=== PATIENT | male | born 1940 | race Caucasian/White ===

== ENCOUNTER 2018-06-10 09:41 | Inpatient (IN) | payer MEDICARE | END 2018-06-12 18:10 | disposition still patient (30) | LOC: EDHIP 09:41 → 2BH 10:06 | PROC: 02703DZ Dilation of Coronary Artery, One Artery with Intraluminal Device, Percutaneous Approach (ICD-10-PCS; principal; ~2018-06-10) | PROC: 4A023N7 Measurement of Cardiac Sampling and Pressure, Left Heart, Percutaneous Approach (ICD-10-PCS; ~2018-06-10) | PROC: B2111ZZ Fluoroscopy of Multiple Coronary Arteries using Low Osmolar Contrast (ICD-10-PCS; ~2018-06-10) | PROC: B2151ZZ Fluoroscopy of Left Heart using Low Osmolar Contrast (ICD-10-PCS; ~2018-06-10) | DX: I21.19 ST elevation (STEMI) myocardial infarction involving other coronary artery of inferior wall (principal); I23.7 Postinfarction angina; I10 Essential (primary) hypertension; E78.5 Hyperlipidemia, unspecified; Z87.891 Personal history of nicotine dependence ==

== ENCOUNTER 2019-02-08 12:14 | Inpatient (IN) | payer MEDICARE ==
[~2019-02-08] VITALS: Ht 177.8 cm; Wt 86.5 kg
[~2019-02-08 12:14] MED LIST: AEC81 PO; ATOR20TA65 PO; GLUC-187 PO; HYDR25TA PO; LEVO100T4 PO; LISI10TA7 PO; TAMS0.4C32 PO; TICA90TA PO; TIMOLOL 0.5% OU
[2019-02-08 12:40] LABS: BASOPHILS % (AUTO) 0.7 % (0.0-5.0); EOSINOPHILS % (AUTO) 2.1 % (0.0-8.0); HEMATOCRIT 43.7 % (42-54); LYMPHOCYTES % (AUTO) 18.3 % (21.0-51.0); MEAN CORPUSCULAR HEMOGLOBIN 31.4 pg (27.0-33.0); MEAN CORPUSCULAR HGB CONC 33.3 g/dL (32.0-36.0); MEAN CORPUSCULAR VOLUME 94.3 fL (79-99); MONOCYTES % (AUTO) 11.1 % (3.0-13.0); NEUTROPHILS % (AUTO) 67.8 % (40.0-77.0); NUCLEATED RED BLOOD CELLS 0.1 % (0.0-0.19); PLATELET COUNT (AUTO) 125 K/uL (130-400); RED BLOOD CELL COUNT(AUTO) 4.64 MIL/uL (4.50-6.20); WHITE BLOOD COUNT (AUTO) 5.7 K/uL (4.8-10.8)
[2019-02-08 12:49] LABS: POTASSIUM 4.3 mmol/L (3.5-5.1)
[2019-02-08 12:54] LABS: ALBUMIN 3.6 g/dL (3.5-5.0); BILIRUBIN,TOTAL 0.8 mg/dL (0.2-1.0); TOTAL PROTEIN, SERUM 7.4 g/dL (6.0-8.3)
[2019-02-08 13:00] LABS: MAGNESIUM 1.9 mg/dL (1.80-2.40); TROPONIN I 0.11 ng/mL (0.00-0.06)
[2019-02-08] MEDS ORDERED: ASPIRIN 325 MG TABLET ONE (14:08)
[2019-02-08] MEDS ORDERED: FUROSEMIDE 20 MG TABLET ONE (14:08)
[2019-02-08] MEDS ORDERED: MORPHINE SULFATE 2 MG/ML 1ML SYG IV PRN (14:15)
[2019-02-08] MEDS ORDERED: ACETAMINOPHEN 325 MG TAB PO PRN ×2 (14:15)
[2019-02-08] MEDS ORDERED: ONDANSETRON HCL 4 MG/2 ML VIAL IV PRN (14:15)
[2019-02-08 15:39] LABS: ABG BASE EXCESS 0.9 mmol/L (-2.0-3.0); ABG HCO3 26.4 mmol/L (21.0-28.0); ABG OXYGEN SATURATION 94.7 % (95.0-99.0); ABG PCO2 45 mmHg (35-48)
[2019-02-08] MEDS ORDERED: IOHEXOL-350 75 ML VIAL IV ONE (16:04)
[2019-02-08] MEDS ORDERED: FAMOTIDINE 20MG TAB 20 MG TAB ONE (20:54)
[2019-02-08] MEDS ORDERED: ENOXAPARIN SODIUM 100 MG/1 ML SQ ONE (20:54)
[2019-02-08] MEDS ORDERED: ATORVASTATIN CALCIUM 20 MG TABLET ONE (20:55)
[2019-02-08] MEDS: [UNRECOGNIZED DRUG - OTHER] PO SCH (21:00)
[2019-02-08] MEDS: ATORVASTATIN CALCIUM 40 MG TABLET PO SCH (21:00)
[2019-02-08] MEDS: ENOXAPARIN SODIUM 100 MG/1 ML SQ SCH (21:00)
[2019-02-08] MEDS: FAMOTIDINE 20MG TAB 20 MG TAB PO SCH (21:00)
[2019-02-08 22:06] VITALS: BP 161/78
[2019-02-08] MEDS ORDERED: LEVO112T4 PO (22:13)
[2019-02-08] MEDS ORDERED: OMEP-50 PO (22:13)
[2019-02-08] MEDS ORDERED: CLOP75TA32 PO (22:13)
[2019-02-08 23:07] VITALS: BP 123/66
[2019-02-09 03:34] VITALS: BP 120/60
[2019-02-09 04:10] LABS: BASOPHILS % (AUTO) 0.5 % (0.0-5.0); LYMPHOCYTES % (AUTO) 20.3 % (21.0-51.0); MEAN CORPUSCULAR HGB CONC 33.9 g/dL (32.0-36.0); MEAN CORPUSCULAR VOLUME 94.3 fL (79-99); MONOCYTES % (AUTO) 10.6 % (3.0-13.0); NEUTROPHILS % (AUTO) 65.6 % (40.0-77.0); PLATELET COUNT (AUTO) 121 K/uL (130-400); RED BLOOD CELL COUNT(AUTO) 4.24 MIL/uL (4.50-6.20); RED CELL DISTRIBUTION WIDTH 12.7 % (11.0-15.5); WHITE BLOOD COUNT (AUTO) 7.3 K/uL (4.8-10.8)
[2019-02-09 04:26] LABS: ALBUMIN 3.2 g/dL (3.5-5.0); BILIRUBIN,TOTAL 0.9 mg/dL (0.2-1.0); POTASSIUM 3.7 mmol/L (3.5-5.1); TOTAL PROTEIN, SERUM 6.3 g/dL (6.0-8.3)
[2019-02-09] MEDS ORDERED: LEVOTHYROXINE 100 MCG TABLET PO SCH (06:30)
[2019-02-09 07:27] VITALS: BP 139/50
[2019-02-09] MEDS ORDERED: ENOXAPARIN SODIUM 30 MG/0.3 ML SQ SCH (09:00)
[2019-02-09] MEDS ORDERED: LEVOTHYROXINE 112 MCG TABLET PO SCH (09:00)
[2019-02-09] MEDS ORDERED: HYDROCHLOROTHIAZIDE 25 MG TABLET PO SCH (09:00)
[2019-02-09] MEDS: [UNRECOGNIZED DRUG - OTHER] PO SCH ×2 (09:00→20:24)
[2019-02-09] MEDS: TIMOLOL MALEATE 0.5% 5 ML BOTTLE OU SCH (09:00)
[2019-02-09] MEDS: FAMOTIDINE 20MG TAB 20 MG TAB PO SCH ×2 (09:27→20:21)
[2019-02-09] MEDS: CLOPIDOGREL BISULFATE 75 MG TAB PO SCH (09:28)
[2019-02-09] MEDS: TAMSULOSIN HCL 0.4 MG CAP.ER.24H PO SCH (09:28)
[2019-02-09] MEDS: LISINOPRIL 5 MG TABLET PO SCH (09:28)
[2019-02-09] MEDS: ENOXAPARIN SODIUM 100 MG/1 ML SQ SCH ×2 (09:29→20:23)
--- NOTE | 2019-02-09 11:31 | NUR ---
DC PLAN PER PATIENT IS INDEPENDENT, LIVES WITH SPOUSE, NO PROVIDER, HAS WALKER, CANE AND MULTIPLE OXYGEN TANKS AND FEELS SAFE TO RETURN HOME. Addendum: 02/09/19 at 1133 by DAMARIS CHAVEZ Amended: Links added.
[2019-02-09 11:47] VITALS: BP 119/55
[2019-02-09 15:20] VITALS: BP 127/64
[2019-02-09] MEDS ORDERED: PHARMACY COMMUNICATION MISC SCH (15:45)
--- NOTE | 2019-02-09 20:00 | NUR ---
PM NOTE PATIENT RESTING IN BED, NO S/S OF DISTRESS. DENIES PAIN AT THIS MOMENT. DENIES SHORTNESS OF BREATH, PATIENT ON ROOM AIR. ON TELEMETRY PATIENT IS SINUS BRADYCARDIA 48. CALL LIGHT WITHIN REACH, INSTRUCTED TO CALL FOR ASSISTANCE. VERBALIZED UNDERSTANDING.
[2019-02-09] MEDS: ATORVASTATIN CALCIUM 40 MG TABLET PO SCH (20:21)
[2019-02-09 20:33] VITALS: BP 123/66
[2019-02-10] VITALS: BP 124/60
[2019-02-10 03:55] LABS: HEMATOCRIT 40.3 % (42-54); MEAN CORPUSCULAR HEMOGLOBIN 31.7 pg (27.0-33.0); MEAN CORPUSCULAR HGB CONC 33.6 g/dL (32.0-36.0); MEAN CORPUSCULAR VOLUME 94.4 fL (79-99); NUCLEATED RED BLOOD CELLS 0.1 % (0.0-0.19); PLATELET COUNT (AUTO) 123 K/uL (130-400); RED BLOOD CELL COUNT(AUTO) 4.27 MIL/uL (4.50-6.20); RED CELL DISTRIBUTION WIDTH 12.9 % (11.0-15.5); WHITE BLOOD COUNT (AUTO) 5.9 K/uL (4.8-10.8)
[2019-02-10 04:03] LABS: CREATININE 1.1 mg/dL (0.5-1.5); POTASSIUM 3.8 mmol/L (3.5-5.1)
[2019-02-10 04:24] VITALS: BP 111/56
[2019-02-10] MEDS ORDERED: LEVOTHYROXINE 112 MCG TABLET PO SCH (06:30)
[2019-02-10 07:44] VITALS: BP 123/74
[2019-02-10] MEDS ORDERED: APIXABAN 5 MG TABLET PO SCH (08:00)
[2019-02-10] MEDS ORDERED: APIX5TAB PO (08:16)
[2019-02-10] MEDS: [UNRECOGNIZED DRUG - OTHER] PO SCH (09:00)
[2019-02-10] MEDS: TIMOLOL MALEATE 0.5% 5 ML BOTTLE OU SCH (09:00)
[2019-02-10] MEDS: FAMOTIDINE 20MG TAB 20 MG TAB PO SCH (09:19)
[2019-02-10] MEDS: CLOPIDOGREL BISULFATE 75 MG TAB PO SCH (09:19)
[2019-02-10] MEDS: LISINOPRIL 5 MG TABLET PO SCH (09:20)
[2019-02-10] MEDS: TAMSULOSIN HCL 0.4 MG CAP.ER.24H PO SCH (09:20)
[2019-02-10] MEDS ORDERED: HYDROCHLOROTHIAZIDE 25 MG TABLET PO SCH (09:30)
== END 2019-02-10 10:58 | disposition home or self-care (01) | DRG 176 ==
LOC: EDH 12:14 → EDHIP 14:06 → 2DH 21:29
PROVIDERS: ADMIT Internal Medicine; ATTEND Internal Medicine
DX: I26.99 Other pulmonary embolism without acute cor pulmonale (principal); J44.9 Chronic obstructive pulmonary disease, unspecified; R00.1 Bradycardia, unspecified; D69.6 Thrombocytopenia, unspecified; I25.10 Atherosclerotic heart disease of native coronary artery without angina pectoris; E03.9 Hypothyroidism, unspecified; E78.2 Mixed hyperlipidemia; F19.90 Other psychoactive substance use, unspecified, uncomplicated; G30.9 Alzheimer's disease, unspecified; K21.9 Gastro-esophageal reflux disease without esophagitis; I10 Essential (primary) hypertension; I25.2 Old myocardial infarction; N40.0 Benign prostatic hyperplasia without lower urinary tract symptoms; Z79.01 Long term (current) use of anticoagulants; Z79.02 Long term (current) use of antithrombotics/antiplatelets; Z79.899 Other long term (current) drug therapy; Z86.711 Personal history of pulmonary embolism; Z86.73 Personal history of transient ischemic attack (TIA), and cerebral infarction without residual deficits; Z87.891 Personal history of nicotine dependence; Z95.5 Presence of coronary angioplasty implant and graft; E78.5 Hyperlipidemia, unspecified
CPT/HCPCS: 36415; 36600; 71045; 71275; 80048; 80053; 82550; 82803; 83735; 83874; 83880; 84443; 84484; 85025; 85027; 85378; 93005; 93306; 94760; 99291; G0378; J1650; Q9967